=== PATIENT | female | born 1985 | race Caucasian/White ===

== ENCOUNTER 2017-04-24 04:13 | Emergency (ER) | payer MEDICAID ==
[~2017-04-24] VITALS: Ht 165.1 cm; Wt 76.7 kg
[~2017-04-24 04:13] MED LIST: AMOX1TAB64 PO; DOXY100T PO; OMEP-110 PO; POLY17PO5 PO
[2017-04-24 05:46] VITALS: BP 121/76
== END 2017-04-24 05:48 | disposition home or self-care (01) ==
LOC: ED 05:42
DX: F41.1 Generalized anxiety disorder (principal); R06.4 Hyperventilation; F41.0 Panic disorder [episodic paroxysmal anxiety]; R20.9 Unspecified disturbances of skin sensation
CPT/HCPCS: 93005; 99284

== ENCOUNTER 2017-06-24 10:17 | Emergency (ER) | payer MEDICAID ==
[~2017-06-24] VITALS: Ht 152.4 cm; Wt 77.5 kg
[2017-06-24] MEDS ORDERED: SODIUM CHLORIDE 0.9% 1,000 ML IV ONE (11:46)
[2017-06-24] MEDS ORDERED: ONDANSETRON 2MG/ML, 2ML IVPush ONE (12:00)
[2017-06-24] MEDS ORDERED: SODIUM CHLORIDE FLUSH 10ML SYR IVF ONE (12:00)
[2017-06-24 12:13] LABS: HEMATOCRIT 40.6 % (34.6-47.8); WHITE BLOOD COUNT 6.2 x10^3/uL (3.4-10)
[2017-06-24] MEDS ORDERED: ONDANSETRON 2MG/ML, 2ML ONE (12:13)
[2017-06-24] MEDS ORDERED: HYDROmorphone 1 MG/ML, 1ML ONE (12:13)
[2017-06-24 12:25] LABS: BLOOD UREA NITROGEN 9 mg/dL (7-18)
[2017-06-24] MEDS: HYDROmorphone 1 MG/ML, 1ML IVPush PRN ×2 (12:28→12:44)
[2017-06-24 12:31] LABS: ASPARTATE AMINO TRANSFERASE 19 U/L (15-37)
[2017-06-24 13:16] VITALS: BP 105/67
[2017-06-24] MEDS ORDERED: OMNIPAQUE 350 MG/ML, 100ML BOTTLE ONE (13:43)
== END 2017-06-24 15:25 | disposition home or self-care (01) ==
LOC: ED 11:32
DX: K29.00 Acute gastritis without bleeding (principal); Z90.49 Acquired absence of other specified parts of digestive tract; J45.909 Unspecified asthma, uncomplicated
CPT/HCPCS: 36415; 71275; 74177; 80053; 81001; 83690; 84703; 85025; 85379; 96361; 96374; 96375; 99285; J1170; J2405; J7030; Q9967

== ENCOUNTER 2017-11-01 15:50 | Emergency (ER) | payer MEDICAID ==
[~2017-11-01] VITALS: Ht 152.4 cm; Wt 77.6 kg
[2017-11-01] MEDS ORDERED: SODIUM CHLORIDE 0.9% 1,000ML IVBOLUS ONE (16:30)
[2017-11-01] MEDS ORDERED: SODIUM CHLORIDE FLUSH 10ML SYR IVF ONE (16:30)
[2017-11-01] MEDS ORDERED: ONDANSETRON 2MG/ML, 2ML IVPush ONE (16:30)
[2017-11-01 16:58] LABS: BASOPHILS # (AUTO) 0.03 x10^3/uL (0-0.1); BASOPHILS % (AUTO) 0 % (0-1); EOSINOPHILS # (AUTO) 0.13 x10^3/uL (0-0.4); EOSINOPHILS % (AUTO) 2 % (1-7); LYMPHOCYTES # (AUTO) 1.91 x10^3/uL (1-3.4); LYMPHOCYTES % (AUTO) 25 % (22-44); MD NO; MEAN CORPUSCULAR HEMOGLOBIN 30.8 pg (27.0-34.8); MEAN CORPUSCULAR HGB CONC 33.6 g/dL (32.4-35.8); MEAN CORPUSCULAR VOLUME 91.6 fL (80-100); MEAN PLATELET VOLUME 10.3 fL (7.4-10.4); MONOCYTES # (AUTO) 0.48 x10^3/uL (0.2-0.8); MONOCYTES % (AUTO) 6 % (2-9); NEUTROPHILS # (AUTO) 5.19 x10^3/uL (1.8-6.8); NEUTROPHILS % (AUTO) 67 % (42-75); PLATELET COUNT 239 x10^3/uL (130-400); RED BLOOD COUNT 4.28 x10^6/uL (3.82-5.3); RED CELL DISTRIBUTION WIDTH 12.9 % (9.6-15.2)
[2017-11-01] MEDS ORDERED: KETOROLAC 30 MG/1 ML IVPush ONE (17:00)
[2017-11-01 17:09] LABS: MICROSCOPIC NOT IND
[2017-11-01 17:11] LABS: ALANINE AMINOTRANSFERASE 48 U/L (12-78); ALBUMIN 3.8 g/dL (3.4-5.0); ANION GAP 6 mmol/L (5-15); CALCIUM 7.9 mg/dL (8.5-10.1); CHLORIDE 110 mmol/L (98-107); CREATININE 0.66 mg/dL (0.55-1.02)
[2017-11-01 17:13] LABS: CULTURE INDICATED? NO
[2017-11-01 17:16] LABS: ALKALINE PHOSPHATASE 73 U/L (45-117); BILIRUBIN,TOTAL 0.4 mg/dL (0.2-1.0); TOTAL PROTEIN 7.1 g/dL (6.4-8.2)
[2017-11-01] MEDS ORDERED: KETOROLAC 30 MG/1 ML ONE (17:56)
[2017-11-01] MEDS ORDERED: ONDANSETRON 2MG/ML, 2ML ONE (17:57)
[2017-11-01 18:14] VITALS: BP 110/72
== END 2017-11-01 19:12 | disposition home or self-care (01) ==
LOC: ED 18:37
DX: N83.201 Unspecified ovarian cyst, right side (principal); Z90.49 Acquired absence of other specified parts of digestive tract; J45.909 Unspecified asthma, uncomplicated
CPT/HCPCS: 36415; 74176; 80053; 81003; 83690; 84703; 85025; 96361; 96374; 96375; 99285; J1885; J2405; J7030

== ENCOUNTER 2018-04-05 01:28 | Emergency (ER) | payer MEDICAID ==
[~2018-04-05] VITALS: Ht 152.4 cm; Wt 98.1 kg
[2018-04-05 01:30] VITALS: BP 121/80
== END 2018-04-05 03:37 | disposition home or self-care (01) ==
LOC: ED 03:35
DX: J01.00 Acute maxillary sinusitis, unspecified (principal); R06.4 Hyperventilation
CPT/HCPCS: 93005; 99283

== ENCOUNTER 2018-06-05 16:15 | Emergency (ER) | payer MEDICAID ==
[~2018-06-05] VITALS: Ht 152.4 cm; Wt 77.8 kg
[2018-06-05 16:32] VITALS: BP 107/69
[2018-06-05 17:04] LABS: BASOPHILS # (AUTO) 0.02 x10^3/uL (0-0.1); BASOPHILS % (AUTO) 0 % (0-1); EOSINOPHILS # (AUTO) 0.05 x10^3/uL (0-0.4); EOSINOPHILS % (AUTO) 1 % (1-7); LYMPHOCYTES # (AUTO) 1.52 x10^3/uL (1-3.4); LYMPHOCYTES % (AUTO) 17 % (22-44); MD NO; MEAN CORPUSCULAR HEMOGLOBIN 31.7 pg (27.0-34.8); MEAN CORPUSCULAR HGB CONC 34.1 g/dL (32.4-35.8); MONOCYTES # (AUTO) 0.37 x10^3/uL (0.2-0.8); MONOCYTES % (AUTO) 4 % (2-9); NEUTROPHILS # (AUTO) 6.97 x10^3/uL (1.8-6.8); NEUTROPHILS % (AUTO) 78 % (42-75); PLATELET COUNT 249 x10^3/uL (130-400); RED BLOOD COUNT 4.23 x10^6/uL (3.82-5.3)
[2018-06-05 17:17] LABS: ALANINE AMINOTRANSFERASE 26 U/L (12-78); ALBUMIN 3.5 g/dL (3.4-5.0); ANION GAP 9 mmol/L (5-15); CALCIUM 8.6 mg/dL (8.5-10.1); CHLORIDE 110 mmol/L (98-107); CREATININE 0.77 mg/dL (0.55-1.02)
[2018-06-05 17:34] LABS: ALKALINE PHOSPHATASE 67 U/L (45-117); BILIRUBIN,TOTAL 0.5 mg/dL (0.2-1.0); TOTAL PROTEIN 7.6 g/dL (6.4-8.2)
[2018-06-05 18:13] LABS: MICROSCOPIC NOT IND
[2018-06-05 18:17] LABS: CULTURE INDICATED? NO
== END 2018-06-05 18:51 | disposition home or self-care (01) ==
LOC: ED 17:02
DX: O26.891 Other specified pregnancy related conditions, first trimester (principal); Z3A.08 8 weeks gestation of pregnancy; R10.2 Pelvic and perineal pain
CPT/HCPCS: 36415; 76801; 80053; 81003; 84702; 85025; 99285

== ENCOUNTER 2018-07-07 18:17 | Emergency (ER) | payer MEDICAID ==
[~2018-07-07] VITALS: Ht 152.4 cm; Wt 79.7 kg
[2018-07-07 18:26] VITALS: BP 115/76
[2018-07-07 18:59] LABS: CULTURE INDICATED? YES
[2018-07-07 19:02] LABS: BASOPHILS # (AUTO) 0.14 x10^3/uL (0-0.1); BASOPHILS % (AUTO) 1 % (0-1); EOSINOPHILS # (AUTO) 0.09 x10^3/uL (0-0.4); EOSINOPHILS % (AUTO) 1 % (1-7); LYMPHOCYTES # (AUTO) 1.72 x10^3/uL (1-3.4); LYMPHOCYTES % (AUTO) 17 % (22-44); MD NO; MEAN CORPUSCULAR HEMOGLOBIN 32.1 pg (27.0-34.8); MEAN CORPUSCULAR HGB CONC 34.9 g/dL (32.4-35.8); MEAN CORPUSCULAR VOLUME 92.2 fL (80-100); MEAN PLATELET VOLUME 9.8 fL (7.4-10.4); MONOCYTES # (AUTO) 0.47 x10^3/uL (0.2-0.8); MONOCYTES % (AUTO) 5 % (2-9); NEUTROPHILS # (AUTO) 7.85 x10^3/uL (1.8-6.8); NEUTROPHILS % (AUTO) 76 % (42-75); PLATELET COUNT 232 x10^3/uL (130-400); RED BLOOD COUNT 3.86 x10^6/uL (3.82-5.3); RED CELL DISTRIBUTION WIDTH 13.2 % (9.6-15.2)
[2018-07-07 19:10] LABS: ALBUMIN 3.3 g/dL (3.4-5.0); ANION GAP 11 mmol/L (5-15); CALCIUM 8.8 mg/dL (8.5-10.1); CHLORIDE 109 mmol/L (98-107)
[2018-07-07 19:14] LABS: MICROSCOPIC INDICATED
[2018-07-07 19:14] LABS: ALANINE AMINOTRANSFERASE 22 U/L (12-78); ALKALINE PHOSPHATASE 60 U/L (45-117); BILIRUBIN,TOTAL 0.2 mg/dL (0.2-1.0); CREATININE 0.65 mg/dL (0.55-1.02); TOTAL PROTEIN 7.3 g/dL (6.4-8.2)
== END 2018-07-07 20:19 | disposition home or self-care (01) ==
LOC: ED 19:40
DX: O23.10 Infections of bladder in pregnancy, unspecified trimester (principal); Z90.49 Acquired absence of other specified parts of digestive tract; Z3A.12 12 weeks gestation of pregnancy
CPT/HCPCS: 36415; 76801; 80053; 81001; 85025; 87086; 99285

== ENCOUNTER 2018-07-27 13:57 | Emergency (ER) | payer MEDICAID ==
[~2018-07-27] VITALS: Ht 152.4 cm; Wt 78.5 kg
[2018-07-27 14:28] LABS: BASOPHILS # (AUTO) 0.03 x10^3/uL (0-0.1); BASOPHILS % (AUTO) 1 % (0-1); EOSINOPHILS # (AUTO) 0.07 x10^3/uL (0-0.4); EOSINOPHILS % (AUTO) 1 % (1-7); LYMPHOCYTES # (AUTO) 0.91 x10^3/uL (1-3.4); LYMPHOCYTES % (AUTO) 16 % (22-44); MD NO; MEAN CORPUSCULAR HEMOGLOBIN 30.9 pg (27.0-34.8); MEAN CORPUSCULAR VOLUME 90.9 fL (80-100); MEAN PLATELET VOLUME 9.9 fL (7.4-10.4); MONOCYTES % (AUTO) 5 % (2-9); NEUTROPHILS # (AUTO) 4.45 x10^3/uL (1.8-6.8); NEUTROPHILS % (AUTO) 77 % (42-75); PLATELET COUNT 224 x10^3/uL (130-400); RED BLOOD COUNT 4.14 x10^6/uL (3.82-5.3); RED CELL DISTRIBUTION WIDTH 12.9 % (9.6-15.2)
[2018-07-27 14:39] LABS: ALBUMIN 3.2 g/dL (3.4-5.0); ANION GAP 8 mmol/L (5-15); CALCIUM 8.8 mg/dL (8.5-10.1); CHLORIDE 112 mmol/L (98-107); CREATININE 0.61 mg/dL (0.55-1.02)
[2018-07-27 15:05] LABS: MICROSCOPIC INDICATED
[2018-07-27 15:08] LABS: CULTURE INDICATED? YES
[2018-07-27 16:29] VITALS: BP 117/76
== END 2018-07-27 16:31 | disposition home or self-care (01) ==
LOC: ED 14:51
DX: O23.12 Infections of bladder in pregnancy, second trimester (principal); O20.0 Threatened abortion; Z3A.15 15 weeks gestation of pregnancy
CPT/HCPCS: 36415; 76815; 80048; 81001; 82040; 84702; 85025; 87086; 99285